=== PATIENT | female | born 1995 | race Caucasian/White ===

== ENCOUNTER 2016-06-25 22:54 | Emergency (ER) | payer OTHER ==
[2016-06-26 00:55] LABS: BILIRUBIN NEGATIVE (NEGATIVE); BLOOD NEGATIVE Ery/uL (NEGATIVE); CLARITY SLIGHTLY HAZY (CLEAR); COLOR YELLOW (YELLOW); GLUCOSE (U) NORMAL (NORMAL); KETONE (U) TRACE mg/dL (NEGATIVE); LEUKOCYTES 1+ Leu/uL (NEGATIVE); NITRITE NEGATIVE (NEGATIVE); PROTEIN NEGATIVE (NEGATIVE); SPECIFIC GRAVITY >=1.030 (1.001-1.030)
[2016-06-26 01:03] LABS: BACTERIA 1+; SQUAMOUS EPITHELIAL CELLS >50
== END 2016-06-26 01:21 | disposition home or self-care (01) ==
LOC: FER 22:54
PROVIDERS: Emergency Medicine Emergency Medical Services
DX: B34.9 Viral infection, unspecified (principal); Z88.2 Allergy status to sulfonamides; Z88.6 Allergy status to analgesic agent
CPT/HCPCS: 81001; 87450; 87804; 87899

== ENCOUNTER 2020-04-04 16:50 | Emergency (ER) | payer OTHER ==
[2020-04-04] MEDS ORDERED: VOLTAREN **OUT50 MG PO (18:22)
== END 2020-04-04 19:04 | disposition home or self-care (01) ==
LOC: FER 16:50
DX: S60.222A Contusion of left hand, initial encounter (principal); Z88.2 Allergy status to sulfonamides; Z91.030 Bee allergy status; W20.8XXA Other cause of strike by thrown, projected or falling object, initial encounter
CPT/HCPCS: 73130